=== PATIENT | male | born 1955 | race Caucasian/White ===

== ENCOUNTER 2021-01-11 11:37 | Outpatient (CLI) | payer MEDICARE | END 2021-01-11 11:38 | disposition home or self-care (01) | LOC: CSHRAD 11:37 | PROVIDERS: ATTEND Family Medicine | DX: M25.572 Pain in left ankle and joints of left foot (principal); M25.472 Effusion, left ankle ==

== ENCOUNTER 2021-02-23 10:20 | Emergency (ER) | payer MEDICARE | END 2021-02-23 11:01 | disposition home or self-care (01) | LOC: CSHERS 10:20 | DX: S20.362A Insect bite (nonvenomous) of left front wall of thorax, initial encounter (principal); L03.313 Cellulitis of chest wall; I10 Essential (primary) hypertension; W57.XXXA Bitten or stung by nonvenomous insect and other nonvenomous arthropods, initial encounter | CPT/HCPCS: 99282 ==